=== PATIENT | male | born 1955 | race American Indian/Alaskan Native ===

== ENCOUNTER 2021-02-25 16:04 | Emergency (ER) | payer OTHER ==
[2021-02-25 17:03] VITALS: BP 128/87
--- NOTE | 2021-02-25 17:27 | Emergency Department Report ---
ED Abdominal Pain HPI - General Chief Complaint: Abdominal Pain Stated Complaint: STOMACH PAIN Time Seen by Provider: 02/25/21 17:21 Source: patient Mode of arrival: Ambulatory Limitations: No Limitations - History of Present Illness Initial Comments: Patient is 65 years old male with no significant past medical history. Patient presented to the ER complaining of diffuse abdominal pain, sharp and aching in nature with no radiation. Patient stated that he has been having this pain for approximately 2 months now however is getting worse in the last few days. Patient stated that he was seen in a several ER and he has CAT scan and MRI of the abdomen that revealed nothing. Patient stated that he also started losing weight. He stated that he lost approximately 10 pounds in the last 1 months. He also reported decreased appetite. He also reported constipation and he stated that he has to use laxative to use the bathroom. He reported hematoch ezia sometimes. MD Complaint: abdominal pain -: week(s) (7) Location: diffuse Radiation: none Migration to: no migration Severity scale (0 -10): 9 Quality: aching, sharp Consistency: intermittent Associated Symptoms: constipation, hematochezia. denies: nausea, vomiting, diarrhea - Related Data Allergies Allergy/AdvReac Type Severity Reaction Status Date / Time No Known Allergies Allergy Unverified 02/25/21 17:00 ED Review of Systems ROS: Stated complaint: STOMACH PAIN Other details as noted in HPI Comment: All other systems reviewed and negative Constitutional: denies: chills Respiratory: denies: cough, shortness of breath, SOB with exertion, SOB at rest Cardiovascular: denies: chest pain, palpitations Gastrointestinal: abdominal pain, constipation, hematochezia. denies: nausea, vomiting, diarrhea, hematemesis, melena Genitourinary: denies: urgency, dysuria Neurological: denies: headache, weakness, numbness, paresthesias, confusion ED Past Medical Hx - Past Medical History Previous Medical History?: No - Surgical History Past Surgical History?: No ED Physical Exam - General Limitations: No Limitations General appearance: alert, in no apparent distress - Head Head exam: Present: atraumatic, normocephalic, normal inspection - Eye Eye exam: Present: normal appearance, PERRL - ENT ENT exam: Present: normal exam, normal orophraynx, mucous membranes moist - Neck Neck exam: Present: normal inspection, full ROM. Absent: tenderness, meningismus - Respiratory Respiratory exam: Present: normal lung sounds bilaterally - Cardiovascular Cardiovascular Exam: Present: regular rate, normal rhythm, normal heart sounds - GI/Abdominal GI/Abdominal exam: Present: soft, normal bowel sounds. Absent: distended, tenderness, guarding, rebound, rigid, organomegaly, mass, bruit, pulsatile mass, hernia - Extremities Exam Extremities exam: Present: normal inspection, full ROM, normal capillary refill. Absent: tenderness, pedal edema, joint swelling, calf tenderness - Back Exam Back exam: Present: normal inspection, full ROM. Absent: CVA tenderness (R), CVA tenderness (L) - Neurological Exam Neurological exam: Present: alert, oriented X3, CN II-XII intact, normal gait, reflexes normal. Absent: motor sensory deficit - Psychiatric Psychiatric exam: Present: normal mood - Skin Skin exam: Present: warm, intact, normal color ED Course Vital Signs 02/25/21 02/25/21 16:40 17:02 Temperature 98.7 F 98.2 F Pulse Rate 90 91 H Respiratory 18 18 Rate Blood Pressure 128/87 O2 Sat by Pulse 98 98 Oximetry ED Medical Decision Making - Medical Decision Making Patient is 65 years old male with no significant past medical history. Patient presented to the ER complaining of diffuse abdominal pain, sharp and aching in nature with no radiation. Patient stated that he has been having this pain for approximately 2 months now however is getting worse in the last few days. Patient stated that he was seen in a several ER and he has CAT scan and MRI of the abdomen that revealed nothing. Patient stated that he also started losing weight. He stated that he lost approximately 10 pounds in the last 1 months. He also reported decreased appetite. He also reported constipation and he stated that he has to use laxative to use the bathroom. He reported hematochezia sometimes. Labs reviewed and is unremarkable. Patient symptoms is really concerning for colon cancer given the loss of weight and constipation and hematochezia. I strongly advised the patient to follow-up with his prorate clerk for colonoscopy. Patient does not have any indication for an acute abdomen so imaging was not ordered. Patient advised to return to the ER if he develop any new symptoms. Critical care attestation.: If time is entered above; I have spent that time in minutes in the direct care of this critically ill patient, excluding procedure time. ED Disposition Clinical Impression: Abdominal pain, Weight loss Disposition: 01 HOME / SELF CARE / HOMELESS Is pt being admited?: No Condition: Stable Instructions: Abdominal Pain, Adult, Colorectal Cancer Screening Referrals: PRIMARY CARE, [Referring] - 3-5 Days
[2021-02-25 17:49] LABS: Basophils % (Auto) 0.5 % (0.0-1.8); Eosinophils # (Auto) 0.2 K/mm3 (0.0-0.4); Eosinophils % (Auto) 2.7 % (0.0-4.3); Hematocrit 42.9 % (35.5-45.6); Hemoglobin 13.9 gm/dl (11.8-15.2); Lymphocytes # (Auto) 2.8 K/mm3 (1.2-5.4); Lymphocytes % (Auto) 38.4 % (13.4-35.0); Mean Corpuscular HGB Conc 32 % (32-34); Mean Corpuscular Volume 77 fl (84-94); Monocytes # (Auto) 0.9 K/mm3 (0.0-0.8); Monocytes % (Auto) 12.5 % (0.0-7.3); Platelet Count 251 K/mm3 (140-440); Red Blood Count 5.57 M/mm3 (3.65-5.03); Red Cell Distribution Width 14.6 % (13.2-15.2)
[2021-02-25 18:11] LABS: Alanine Aminotransferase 41 units/L (7-56); Albumin 4.3 g/dL (3.9-5); BUN/Creatinine Ratio 11; Blood Urea Nitrogen 9 mg/dL (9-20); Calcium 9.1 mg/dL (8.4-10.2); Hemolysis Index 6
== END 2021-02-25 18:54 | disposition home or self-care (01) ==
LOC: ED 16:04
DX: R63.4 Abnormal weight loss (principal); R10.9 Unspecified abdominal pain
CPT/HCPCS: 36415; 80053; 85025